=== PATIENT | male | born 1990 | race Caucasian/White ===

== ENCOUNTER 2019-06-14 12:28 | Emergency (ER) | payer SELFPAY ==
[2019-06-14 12:49] VITALS: BP 133/88
--- NOTE | 2019-06-14 13:09 | ED Physician Documentation ---
General Adult - HISTORIAN Historian: patient - HPI Stated Complaint: Eye pain Chief Complaint: General Adult Onset: days ago (4) Timing: still present Severity: moderate Further Comments: yes (Pt is a 29 yo male who was using a razor on a project 4 days ago, when a piece of the blade splintered off and struck him in the R eye. Pt does not believe there is foreign body in his eye, but he has developed some swelling around the eye and eyelid over the past 4 days. Pt says that his vision in unaffected but that there is pain with looking at light.) - ROS CONST: no problems EYES/ENT: other (R eye pain) CVS/RESP: none GI/: none MS/SKIN/LYMPH: none - PAST HX Past History: none Allergies/Adverse Reactions: Allergies Allergy/AdvReac Type Severity Reaction Status Date / Time No Known Allergies Allergy Verified 06/14/19 12:48 Home Medications: Ambulatory Orders Medication Instructions Recorded NK 06/14/19 - SOCIAL HX Smoking History: cigarettes - FAMILY HX Family History: No - VITAL SIGNS Vital Signs: Vital Signs Temp Pulse Resp BP Pulse Ox 83 15 133/88 98 06/14/19 12:30 06/14/19 12:30 06/14/19 12:30 06/14/19 12:30 - REVIEWED ASSESSMENTS Nursing Assessment Reviewed: Yes Vitals Reviewed: Yes Progress - Progress Progress: Pt will f/u at [facility] for slit lamp exam and for uveitis. [facility] aware. General Adult Physical Exam - PHYSICAL EXAM GENERAL APPEARANCE: moderate distress EENT: other (R eye, mild periorbital swelling and eyelid swelling; no fb seen on eyelid inversion) NECK: normal inspection, supple RESPIRATORY: no resp distress, chest non-tender, breath sounds normal CVS: reg rate & rhythm, heart sounds normal BACK: normal inspection SKIN: other (mild R periorbital and R eyelid swelling) EXTREMITIES: non-tender, normal range of motion, no evidence of injury NEURO: oriented X3, motor nml, sensation nml Discharge Clincal Impression: R eye pain Referrals: Primary Doctor,No [Primary Care Provider] - Condition: Stable Disposition: 01 HOME, SELF-CARE Decision to Admit: NO Decision Time: 13:15
== END 2019-06-14 13:15 | disposition home or self-care (01) ==
LOC: ED 12:28
DX: H57.11 Ocular pain, right eye (principal)
CPT/HCPCS: 99281; 99282